=== PATIENT | male | born 2000 | race Caucasian/White ===

== ENCOUNTER 2021-11-06 19:02 | Emergency (ER) | payer SELFPAY ==
[~2021-11-06 19:02] MED LIST: PROTONIX 40MG T40 MG PO; ZOFRAN8 MG PO
[2021-11-06 20:48] LABS: BASOPHIL 0.5 % (0-2); EOSINOPHIL 0.7 % (0-5); HCT 43.8 % (42.0-52.0); HGB 15.4 g/dl (13.2-18.0); LYMPHOCYTE 9.6 % (15-48); MCH 32.8 pg (25.0-31.0); MCHC 35.2 g/dL (32.0-36.0); MCV 93.2 fL (78.0-100.0); MONOCYTE 7.8 % (0-12); MPV 9.4 fL (6.0-9.5); NEUTROPHIL 81.1 % (41-80); NRBC 0; PLT 224 K/uL (150-400); RDW 11.1 % (11.5-14.0)
[2021-11-06 20:49] LABS: BILIRUBIN NEGATIVE (NEGATIVE); BLOOD NEGATIVE Ery/uL (NEGATIVE); CLARITY CLEAR (CLEAR); COLOR YELLOW (YELLOW); GLUCOSE (U) NORMAL (NORMAL); LEUKOCYTES NEGATIVE Leu/uL (NEGATIVE); NITRITE NEGATIVE (NEGATIVE); PROTEIN NEGATIVE (NEGATIVE); UROBILINOGEN 0.2 mg/dL (0.2-1.0)
[2021-11-06 20:50] LABS: AMPHETAMINES NEGATIVE (NEGATIVE); BARBITURATES NEGATIVE (NEGATIVE); ECSTASY (MDMA) NEGATIVE (NEGATIVE); MARIJUANA (THC) NEGATIVE (NEGATIVE); METHADONE NEGATIVE (NEGATIVE); OPIATES NEGATIVE (NEGATIVE); OXYCODONE NEGATIVE (NEGATIVE)
[2021-11-06 21:13] LABS: ALBUMIN 4.5 g/dL (3.4-5.0); BILIRUBIN - TOTAL 0.3 mg/dL (0.2-1.0); BUN/CREAT RATIO (CALC) 17.3 RATIO; CREATININE 1.04 mg/dL (0.67-1.17); GLOBULIN (CALCULATION) 3.1 g/dL; POTASSIUM 3.9 mmol/L (3.5-5.1); TOTAL PROTEIN 7.6 g/dL (6.4-8.2)
[2021-11-06] MEDS ORDERED: VISTARIL25 MG PO (22:09)
== END 2021-11-06 22:22 | disposition home or self-care (01) ==
LOC: FER 19:02
PROVIDERS: Physician Assistant Medical
DX: F41.9 Anxiety disorder, unspecified (principal); Z88.0 Allergy status to penicillin; Z28.310 Unvaccinated for COVID-19
CPT/HCPCS: 36415; 80053; 80305; 81003; 85025; 93005; J3410